=== PATIENT | male | born 1965 | race Caucasian/White ===

== ENCOUNTER 2017-04-03 14:09 | Emergency (ER) | payer MEDICARE, MEDICAID ==
[~2017-04-03] VITALS: Ht 170.2 cm; Wt 84.0 kg
[~2017-04-03 14:09] MED LIST: AMMONIUM LAC122 EX; ANUSOL-HC25 MG RE; DOCUSATE SODIUM1 TAB PO; FERROUS SULF PO; FERROUS SULF325 M1 PO; GLIPIZIDE ER10 M1 PO; GLIPIZIDE5 MG PO; GLYBURIDE2.5 MG PO; GLYBURIDE5 MG PO; HYZAAR1 TAB PO; LISINOP/HCTZ1 TAB PO; LOPID600 MG PO; METFORMIN1000 MG PO; METFORMIN500 M1 PO; MIRALAX3350 N1 PO; POLYETH GLYC3350 NF PO; PROTONIX40 M2 PO; STOOL SOFTEN1 TAB OR
[2017-04-03] MEDS ORDERED: PREDNISONE10 MG PO (14:48)
[2017-04-03] MEDS ORDERED: CIMETIDINE400 M1 PO (14:48)
[2017-04-03] MEDS ORDERED: BENADRYL 50MG C50 MG PO (14:48)
[2017-04-03 14:57] VITALS: BP 143/85
== END 2017-04-03 15:00 | disposition home or self-care (01) ==
LOC: ED 14:09
DX: L50.9 Urticaria, unspecified (principal)